=== PATIENT | female | born 1955 | race Caucasian/White ===

== ENCOUNTER → 2016-12-25 | Outpatient (CLI) | payer MEDICAID ==
[~2016-12-25] MED LIST: ACYCLOVIR800 MG; ATENOLOL50 MG; ESTRADIOL1 M1; LISINOPRIL 20MG20 MG; NAPROSYN 500MG500 MG; PREDNISONE20 MG PO; SIMVASTATIN80 MG
[2016-12-25 13:58] LABS: BUN 18 mg/dL (7-18)
[2016-12-25 13:59] LABS: GFR (ESTIMATED) 51 ML/MIN (59-)
--- NOTE | 2016-12-26 09:29 | RADIOLOGY REPORT PS360 ---
CT CHEST W/WO CONTRAST HISTORY: Follow-up lung nodule LUNG NODULE ORDERING PHYSICIAN: DYLAN LUCIO MD PATIENT AGE: 61 years TECHNIQUE: Helical acquisition without and with contrast. Axial, sagittal, and coronal reformatted images are generated and reviewed. COMPARISON: 07/01/2016, 03/04/2016 FINDINGS: No mediastinal or hilar mass or adenopathy is evident. Normal heart size. No pericardial thickening. There is a noncalcified 13 x 9 mm nodule well circumscribed with a lobular contour in the left lower lobe. This is not significantly changed and may contain a small sathish of calcium. This is similar when compared to 03/04/2016. No new nodules are evident. No infiltrates or effusions. No acute bony anomalies. Images of the upper abdomen show a 9 mm splenic artery aneurysm which is stable. Otherwise unremarkable. IMPRESSION: Stable left lower lobe nodule. Recommend continued yearly follow-up.
== END ==
LOC: LAB 13:41 → RAD 13:41
PROVIDERS: Thoracic Surgery (Cardiothoracic Vascular Surgery)
DX: R91.1 Solitary pulmonary nodule (principal)
CPT/HCPCS: Q9967

== ENCOUNTER 2017-06-19 13:46 | Outpatient (CLI) | payer MEDICAID ==
[2017-06-19 13:45] VITALS: BP 125/62
[~2017-06-19 13:46] MED LIST changes: -ACYCLOVIR800 MG; -ATENOLOL50 MG; +ATENOLOL50 MG PO; +ESTRADIOL0.5 MG PO; -ESTRADIOL1 M1; +SIMVASTATIN40 MG PO; -SIMVASTATIN80 MG; +ZOVIRAX400 M1 PO
[2017-06-19] MEDS ORDERED: XALATAN 0.005%2.5 M1 OP (14:30)
[2017-06-19] MEDS ORDERED: NEURONTIN100 MG PO (14:30)
[2017-06-19] MEDS ORDERED: AMLO5TAB PO (14:31)
[2017-06-19] MEDS ORDERED: HUMIRA40 MG/0.3 SQ (14:35)
[2017-06-19 14:57] VITALS: BP 117/55
[2017-06-19 16:27] VITALS: BP 120/69
== END 2017-06-19 16:35 | disposition home or self-care (01) ==
LOC: COP 13:46
DX: L03.211 Cellulitis of face (principal); H60.11 Cellulitis of right external ear
CPT/HCPCS: J3370

== ENCOUNTER 2017-06-20 10:27 | Inpatient (IN) | payer MEDICAID ==
[~2017-06-20] VITALS: Ht 157.5 cm; Wt 86.7 kg
[~2017-06-20 10:27] MED LIST changes: +AMLO5TAB PO; +HUMIRA40 MG/0.3 SQ; +NEURONTIN100 MG PO; +XALATAN 0.005%2.5 M1 OP
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
--- OUTSIDE RECORDS SUMMARY | 2017-06-20 10:29 | External Medical Summary Rpt | CCD ---
Author Author [employer] Organization [employer] Address Unknown Phone Unavailable Purpose Continuity of Care Document - through 2016
--- OUTSIDE RECORDS SUMMARY | 2017-06-20 10:30 | External Medical Summary Rpt | CCD ---
Demographics Preferred Language Beninese Marital Status Unknown Congregational Affiliation Unknown Race Unknown Ethnic Group Unknown Author Author , DANE LOWRY Address Unknown Phone Immunization Unable to retrieve immunization data due to connection failure with Immunization Registry. Please try again later.
--- OUTSIDE RECORDS SUMMARY | 2017-06-20 10:30 | External Medical Summary Rpt ---
Author Author ESSENCE August, [employer] Organization [employer] Address Unknown Phone Unavailable
--- OUTSIDE RECORDS SUMMARY | 2017-06-20 10:30 | External Medical Summary Rpt | CCD ---
Demographics Preferred Language Kyrgyz Marital Status Unknown Advent Affiliation Unknown Race Unknown Ethnic Group Unknown Author Author , DANE LOWRY Address Unknown Phone Immunization Unable to retrieve immunization data due to connection failure with Immunization Registry. Please try again later.
--- NOTE | 2017-06-20 11:31 | HISTORY AND PHYSICAL REPORT ---
Demographics: Admit date: 06/20/17 Chief complaint: FACIAL PAIN PRIMARY DIAGNOSIS: FACIAL CELLULITIS THAT FAILED OP TREATMENT Allergies: Coded Allergies: Sulfa (Sulfonamide Antibiotics) (06/19/17) azithromycin (From ZITHROMAX) (06/19/17) cefuroxime (06/19/17) clindamycin (06/19/17) History of present illness: History of present illness: 62 year old femaile initially seen in office on Jun 17 adn diagniosed with right ear and facial cellulitis and placed on doxycycline. 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 Patient was placed on doxyccyline and this has been effective in the past. She returned to the office on with worsening pain. Admission was discussed but attempt at op iv infusion of antibiotics was made. Patient recieved IV vancomycin and Levaquin. She returned to the office on Jun 20 with more intense erythema and swelling of the right ear and face. Patient has been admitted for IV antibiotics as she has failed outpatient treatment Past medical history: Family HX Family Hx Insignificant No Diabetes No CAD Yes Hypertension Yes Hyperlipidemia No Cancer Yes TB No Immunization HX DT/Tetanus 5-10 YRS Flu NEVER Pneumonia NEVER General Angina: No VA: No Hypertension? Yes Hyperlipidemia? Yes CHF? No COPD? No Asthma? No Hernia? No CVA? No Seizures? No Diabetes? No UTI? No Stones? No GB Disease: Yes Hepatitis? No Cataracts? No Glaucoma? No TB? No Cancer? No Past Surgical HX Previous Surgery?Y Tubal Ligation D & C GALLBLADDER HYSTERECTOMY CYST REMOVED FROM HAND ABDOMINAL ADHESIONS REMOVED X 2 CARPAL TUNNEL KNEE SCOPE-RIGHT Current home meds: Reported Medications Acyclovir (Zovirax) 400 MG PO DAILY ATENOLOL (Atenolol 50MG) 50 MG PO DAILY #30 TAB 30 Days Estradiol 0.5 MG PO DAILY Simvastatin (Simvastatin 40MG Tab) 40 MG PO QHS Gabapentin (Neurontin) 100 MG PO QHS Latanoprost (Xalatan 0.005% Soln,Oph) 1 DROP OP QHS Amlodipine Besylate (Amlodipine) 5 MG PO DAILY Adalimumab (Humira) 40 MG SQ OTHER Social Hx: Smoking HX Tobacco No Alcohol Alcohol: No Hx of Drug Use Drug Use? No Patien't marital status is Patient's support system is good Review of systems: Constitutional No: chills, fever, malaise. Ears, Nose, Mouth, Throat see HPI Respiratory no symptoms reported. Cardiovascular no symptoms reported Gastrointestinal/Abdominal no symptoms reported Genitourinary no symptoms reported. Musculoskeletal no symptoms reported. Neurological Yes: no symptoms reported. Exam: Exam General appearance: normal appearance, alert, awake Eyes: normal exam, anicteric ENT: right external ear swollen with tenderness to palpation. TM visible with only mild canal swelling. Dry erythematous patch of skin above and behind right ear. Neck: normal inspection, non-tender, no carotid bruit, no JVD, lymphadenopathy Cardiovascular: normal exam Respiratory: normal exam, clear to auscultation ABD: normal exam, non-distended, normal bowel sounds Musculoskeletal: normal exam Skin: well demarcated erythema of the right face anterior to the ear involving temoral area and jaw Plan: Problem List 1. Cellulitis diffuse, face 2. Cellulitis of right ear Plan: Admit for IV antibiotics ( Vanc and Unasyn)
[2017-06-20 13:10] VITALS: BP 147/88
--- NOTE | 2017-06-20 14:21 | CONSULT NOTE ---
Pharmacokinetic Consult Date of consult: 06/20/17 Time of consult: 5898 Referring provider: DR. CARREON Reason for consult: VANCOMYCIN DOSING Allergies: Coded Allergies: Sulfa (Sulfonamide Antibiotics) (06/19/17) azithromycin (From ZITHROMAX) (06/19/17) cefuroxime (06/19/17) clindamycin (06/19/17) Home Medications: Reported Medications Acyclovir (Zovirax) 400 MG PO DAILY ATENOLOL (Atenolol 50MG) 50 MG PO DAILY #30 TAB 30 Days Estradiol 0.5 MG PO DAILY Simvastatin (Simvastatin 40MG Tab) 40 MG PO QHS Gabapentin (Neurontin) 100 MG PO QHS Latanoprost (Xalatan 0.005% Soln,Oph) 1 DROP OP QHS Amlodipine Besylate (Amlodipine) 5 MG PO DAILY Adalimumab (Humira) 40 MG SQ OTHER Height (feet): 5 Height (inches): 2.00 Medical History: Angina: No IN: No Hypertension? Yes Hyperlipidemia? Yes CHF? No COPD? No Asthma? No Hernia? No CVA? No Seizures? No Diabetes? No UTI? No Stones? No GB Disease: Yes Hepatitis? No Cataracts? No Glaucoma? No TB? No Cancer? No Labs: ORDERED Problem List: 1. Cellulitis diffuse, face 2. Cellulitis of right ear Plan: BASED ON PATIENT'S FACTORS, RECOMMEND STARTING WITH VANCOMYCIN 2000 MG X1 DOSE. PATIENT WILL LIKELY NEED VANCOMYCIN 1750 MG Q24H AFTER THE INITIAL DOSE. WAITING ON LABS TO DETERMINE THIS. PHARMACY WILL FOLLOW DAILY AND ADJUST APPROPRIATE. NICK MAKI PHARMD at 2017
--- NOTE | 2017-06-20 14:21 | CONSULT NOTE ---
Pharmacokinetic Consult Date of consult: 06/20/17 Time of consult: 9387 Referring provider: DR. CARREON Reason for consult: VANCOMYCIN DOSING Allergies: Coded Allergies: Sulfa (Sulfonamide Antibiotics) (06/19/17) azithromycin (From ZITHROMAX) (06/19/17) cefuroxime (06/19/17) clindamycin (06/19/17) Home Medications: Reported Medications Acyclovir (Zovirax) 400 MG PO DAILY ATENOLOL (Atenolol 50MG) 50 MG PO DAILY #30 TAB 30 Days Estradiol 0.5 MG PO DAILY Simvastatin (Simvastatin 40MG Tab) 40 MG PO QHS Gabapentin (Neurontin) 100 MG PO QHS Latanoprost (Xalatan 0.005% Soln,Oph) 1 DROP OP QHS Amlodipine Besylate (Amlodipine) 5 MG PO DAILY Adalimumab (Humira) 40 MG SQ OTHER Height (feet): 5 Height (inches): 2.00 Medical History: Angina: No [place]: No Hypertension? Yes Hyperlipidemia? Yes CHF? No COPD? No Asthma? No Hernia? No CVA? No Seizures? No Diabetes? No UTI? No Stones? No GB Disease: Yes Hepatitis? No Cataracts? No Glaucoma? No TB? No Cancer? No Labs: ORDERED Problem List: 1. Cellulitis diffuse, face 2. Cellulitis of right ear Plan: BASED ON PATIENT'S FACTORS, RECOMMEND STARTING WITH VANCOMYCIN 2000 MG X1 DOSE. PATIENT WILL LIKELY NEED VANCOMYCIN 1750 MG Q24H AFTER THE INITIAL DOSE. WAITING ON LABS TO DETERMINE THIS. PHARMACY WILL FOLLOW DAILY AND ADJUST APPROPRIATE. NICK MAKI PHARMD at [phone]
[2017-06-20 15:23] VITALS: BP 126/73
[2017-06-20 15:34] LABS: HEMOGLOBIN 14.3 g/dL (12.2-16.2); LYMPH % 22.3 % (10-50.0)
[2017-06-20 15:49] VITALS: BP 126/73
[2017-06-20 19:35] VITALS: BP 107/62
[2017-06-21 03:52] VITALS: BP 128/59
[2017-06-21 06:25] LABS: LYMPH # 1.7 K/mm3 (0.7-4.5); LYMPH % 25.8 % (10-50.0)
[2017-06-21 07:14] VITALS: BP 112/76
[2017-06-21 08:24] VITALS: BP 112/76
--- NOTE | 2017-06-21 08:31 | ACUTE CARE PROGRESS NOTE (QUA) ---
Progress Notes Subjective Date 06/21/17 Time 0828 Note Patient states she feels better than yesterday, can chew without as much pain, and has no fever or chills sensations. However, she notes the swelling and the pain in front of her right ear is still fairly significant. No nausea or vomiting. No chest pain or shortness of air. Patient is pleasant, alert, cardiopulmonary examination unremarkable. Her face has an obvious area of cellulitis in front of the RIGHT helix that involves the tragus into the zygomatic arch area and the anterior aspect of the maxillary bone in front of the RIGHT orbit. There is no actual orbital involvement. The area of cellulitis goes down into the RIGHT mandibular area, half way to the chin. There is some blistering but no fluctuance, and there is no crepitus on palpation. Oropharynx is clear, no tonsillar hypertrophy. There is shoddy cervical lymphadenitis noted in the RIGHT side. Extraocular motions are intact, the ear canal itself is clear. There is no mastoid tenderness. Objective Findings Last VS-Temp:98.1 B/P:112/76 Pulse:75 Resp:18 SaO2:97 ROOM AIR Last weight lbs:191 oz:2 K.694 Method:Bed Scales Assessment/Plan Problem List 1. Cellulitis diffuse, face 2. Cellulitis of right ear Patient condition Improving Plan: continue current care, patient seems to be improving. I think imaging is warranted given the failure of IV antibiotics over the past 4 days. I will also add Solu-Medrol for swelling relief. This inpt stay is expected to cross 2 MNs from start of care Yes at 0831
--- NOTE | 2017-06-21 10:20 | PHARMACY CLINIC NOTE ---
Patient Demographics Patient Demographics Admission date: 06/20/17 Date: 06/21/17 Time: 1019 Allergies Coded Allergies: Sulfa (Sulfonamide Antibiotics) (06/19/17) azithromycin (From ZITHROMAX) (06/19/17) cefuroxime (06/19/17) clindamycin (06/19/17) HEIGHT- FT: 5 IN: 2.00 K.694 VTE General Information Labs: Laboratory Tests 06/21 06/20 0555 1347 Hematology Hgb (12.2 - 16.2 g/dL) 13.0 14.3 Hct (37.0 - 47.0 %) 38.2 40.9 Plt Count (142 - 424 K/mm3) 178 183 Disclaimer The following section includes nursing documentation that has been pulled in for pharmacy review. Patient's VTE score: 3 Patient's VTE Risk: LOW RISK Clinical trial participant? No VTE prophylaxis NQF [id number] VTE prophylaxis ordered? Yes Type of prophylaxis/treatment: FRAN at 1019
--- NOTE | 2017-06-21 10:29 | RADIOLOGY REPORT PS360 ---
CT MAXILLOFACIAL W/CONTRAST CLINICAL INDICATION: CELLULITIS; MAXIOFACIAL/ORBITS/MASTOIDS, facial cellulitis, pain and swelling and redness ORDERING PHYSICIAN: Dinesh Colby MD PATIENT AGE: 62 years TECHNIQUE: Axial images obtained following the intravenous administration of 1 mL's of Isovue-370. COMPARISON: None FINDINGS: No obvious abscess. There is mild stranding of the subcutaneous tissues in the right aspect of the face beginning at the right temporal fossa region/zygomatic area and extending inferiorly along the right carotid gland and masseter extending inferiorly to the level of the hyoid bone. There is some minimal stranding of the fat deep to the fascial fascia as well.. There are some mild thickening of the right facial fascia . There are a few scattered small lymph nodes in the neck bilaterally and in the submental region. Artifact is present from dental work. No evidence of osteomyelitis. No evidence of sinusitis. IMPRESSION: 1. Right-sided facial cellulitis. 2. No evidence of facial abscess
[2017-06-21 15:54] VITALS: BP 140/70
[2017-06-21 20:08] VITALS: BP 120/64
[2017-06-21 20:10] VITALS: BP 120/64
[2017-06-22 03:50] VITALS: BP 124/60
--- NOTE | 2017-06-22 07:21 | Discharge Summary ---
Demographics Admit date: 06/20/17 Discharge date: 06/22/17 Discharge diagnoses Problem List 1. Cellulitis diffuse, face 2. Cellulitis of right ear History of present illness History of present illness 62 year old femaile initially seen in office on Jun 17 adn diagniosed with right ear and facial cellulitis and placed on doxycycline. 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 Patient was placed on doxyccyline and this has been effective in the past. She returned to the office on with worsening pain. Admission was discussed but attempt at op iv infusion of antibiotics was made. Patient recieved IV vancomycin and Levaquin. She returned to the office on Jun 20 with more intense erythema and swelling of the right ear and face. Patient has been admitted for IV antibiotics as she has failed outpatient treatment. Patient was admitted and placed on vancomycin and Unasyn. Patient had good response to antibiotics. CT scan of the face and sinuses was negative for abscess and showed changes of skin consistent with cellulitis. Over the course of 48 hours the area of erythema contracted and swelling decreased. Pain decreased significantly and by the day of discharge patient was able to lay on the RIGHT side of her face and ear without pain. Patient will be discharged home to continue doxycycline and dicloxacillin will be added to her regimen. Patient will follow-up in the office later this week. Medications Medications: Discharge meds are as noted. Follow up Follow up in office in: 4 DAYS with: Dinesh Colby MD at 0720
[2017-06-22] MEDS ORDERED: DICLOXACILLIN500 M1 PO (07:22)
[2017-06-22 07:48] LABS: HEMOGLOBIN 13.9 g/dL (12.2-16.2)
[2017-06-22 07:49] LABS: LYMPH % 8.3 % (10-50.0)
[2017-06-22 08:00] VITALS: BP 138/70
[2017-06-22 09:45] LABS: NEUTROPHILS 87 % (42-76)
[2017-06-22 10:10] VITALS: BP 138/70
== END 2017-06-22 10:20 | disposition home or self-care (01) | DRG 603 ==
LOC: 2ND 10:27
PROVIDERS: Family Medicine; Internal Medicine Adolescent Medicine
DX: L03.211 Cellulitis of face (principal); H60.11 Cellulitis of right external ear; I10 Essential (primary) hypertension
CPT/HCPCS: J3370; Q9967